=== PATIENT | female | born 1965 | race Caucasian/White ===

== ENCOUNTER 2016-12-15 17:03 | Observation (INO) | payer BC ==
[~2016-12-15] VITALS: Ht 172.7 cm; Wt 69.5 kg
--- NOTE | 2016-12-15 22:15 | NUR ---
1835- bladder scan completed as ordered at this time. Post void scan showed 76 ml of urine. No saez catheter placed at this time.
--- NOTE | 2016-12-16 05:20 | NUR ---
0510- [employer] PROGRAMMER PUMP INITIATED AT THIS TIME ORDERED.
--- NOTE | 2016-12-16 20:11 | NUR ---
AT 17:55 PATIENT FINISHED POURER METAL PUMP. ROSALEE RODRIGUEZ WITNESSED AMARILIS HURLEY WASTING DILAUDID WHICH WAS 0. LAST 24 HOURS FOLLOWS: COMPLETED 23, PARTIAL 0; AND DENIED 8 ATTEMPTS.
== END 2016-12-17 08:50 | disposition home or self-care (01) ==
LOC: MED 17:03
PROVIDERS: ADMIT Urology
DX: N30.20 Other chronic cystitis without hematuria (principal); R30.0 Dysuria; R31.9 Hematuria, unspecified; Z87.442 Personal history of urinary calculi; I10 Essential (primary) hypertension; E11.9 Type 2 diabetes mellitus without complications; F32.9 Major depressive disorder, single episode, unspecified; G43.909 Migraine, unspecified, not intractable, without status migrainosus; Z90.49 Acquired absence of other specified parts of digestive tract; Z90.710 Acquired absence of both cervix and uterus
CPT/HCPCS: 96365; 96366; 96375; 96376; C1758; G0378; J1885; J2704; Q9967